=== PATIENT | male | born 1945 | race Caucasian/White ===

== ENCOUNTER 2017-09-30 08:37 | Day surgery (SDC) | END 2017-09-30 08:50 | disposition home or self-care (01) ==

== ENCOUNTER 2017-11-18 08:30 | Day surgery (SDC) | payer MEDICARE ==
[~2017-11-18] VITALS: Ht 177.8 cm; Wt 74.0 kg
[~2017-11-18 08:30] MED LIST: METO50ER PO
== END 2017-11-18 11:30 | disposition home or self-care (01) ==
LOC: ORSCSDS 08:30
PROVIDERS: Orthopaedic Surgery
PROC: 0HBGXZZ Excision of Left Hand Skin, External Approach (ICD-10-PCS; principal; 2017-11-18 10:00)
DX: S60.352A Superficial foreign body of left thumb, initial encounter (principal); I10 Essential (primary) hypertension; I47.1 Supraventricular tachycardia; R00.2 Palpitations; Z79.899 Other long term (current) drug therapy; F17.210 Nicotine dependence, cigarettes, uncomplicated
CPT/HCPCS: J0690; J2250; J3010; J7120

== ENCOUNTER 2020-09-13 08:48 | Day surgery (SDC) | payer MEDICARE ==
[~2020-09-13] VITALS: Ht 167.6 cm; Wt 78.3 kg
== END 2020-09-13 10:51 | disposition home or self-care (01) ==
LOC: ORSCSDS 08:48
PROVIDERS: Ophthalmology
PROC: 08RJ3JZ Replacement of Right Lens with Synthetic Substitute, Percutaneous Approach (ICD-10-PCS; principal; 2020-09-13 10:30)
DX: H25.11 Age-related nuclear cataract, right eye (principal); F17.210 Nicotine dependence, cigarettes, uncomplicated; I10 Essential (primary) hypertension; Z79.899 Other long term (current) drug therapy
CPT/HCPCS: A9270; J2001; J2250; J3010; J3301; J7040; V2632

== ENCOUNTER 2020-10-04 09:53 | Day surgery (SDC) | payer MEDICARE ==
[~2020-10-04] VITALS: Ht 177.8 cm; Wt 75.3 kg
--- NOTE | 2020-10-04 10:17 | NUR ---
10/04/20 1017 Ana Moore TETRACAINE DROP PLACED IN LEFT EYE BY RUST.TMG AT 1016 PLEDGET PLACED IN LEFT EYE BY RUST.TMG AT 1017
== END 2020-10-04 11:28 | disposition home or self-care (01) ==
LOC: ORSCSDS 09:53
PROVIDERS: Ophthalmology
PROC: 08RK3JZ Replacement of Left Lens with Synthetic Substitute, Percutaneous Approach (ICD-10-PCS; principal; 2020-10-04 11:15)
DX: H25.12 Age-related nuclear cataract, left eye (principal); I10 Essential (primary) hypertension; F17.210 Nicotine dependence, cigarettes, uncomplicated; Z79.899 Other long term (current) drug therapy
CPT/HCPCS: J2001; J2250; J3010; J3301; J7040; V2632